=== PATIENT | male | born 1935 | race Caucasian/White ===

== ENCOUNTER 2020-09-12 19:35 | Emergency (ER) | payer OTHER ==
[~2020-09-12 19:35] MED LIST: LIDOCAINE PAIN1 EACH TP
[2020-09-12 20:20] LABS: HEMOGLOBIN 15.4 gm/dl (14.0-17.5); RED BLOOD COUNT 4.69 M/UL (4.20-5.50); WHITE BLOOD COUNT 9.3 K/UL (4.5-11.0)
[2020-09-12 20:45] LABS: BUN/CREATININE RATIO 18 (0-10)
[2020-09-12] MEDS ORDERED: ELIQUIS2.5 MG PO (23:26)
[2020-09-12] MEDS ORDERED: LOPRESSOR 25 MG25 MG PO (23:27)
[2020-09-12] MEDS ORDERED: XANAX 0.25 MG0.25 MG PO (23:28)
[2020-09-12] MEDS ORDERED: CYANOCOBAL1000 MCG/1 INJ (23:30)
[2020-09-12] MEDS ORDERED: HYDROCODON-ACE1 EAC4 PO (23:30)
[2020-09-12] MEDS ORDERED: VOLTAREN ARTHRI20 GM TOP (23:32)
[2020-09-12] MEDS ORDERED: LASIX20 MG PO (23:33)
[2020-09-12] MEDS ORDERED: ZOCOR 40 MG TAB40 MG PO (23:34)
[2020-09-12] MEDS ORDERED: K-DUR TAB 10 M10 MEQ PO (23:35)
[2020-09-12] MEDS ORDERED: ISOSORBIDE MONO30 MG PO (23:37)
[2020-09-12] MEDS ORDERED: NORVASC10 MG PO (23:38)
[2020-09-12] MEDS ORDERED: ECOTRIN81 MG PO (23:38)
[2020-09-13 06:47] LABS: BUN/CREATININE RATIO 14 (0-10)
[2020-09-13 15:11] LABS: RED BLOOD COUNT 4.59 M/UL (4.20-5.50); WHITE BLOOD COUNT 9.4 K/UL (4.5-11.0)
[2020-09-13 16:01] LABS: BUN/CREATININE RATIO 16 (0-10)
[2020-09-14] MEDS ORDERED: LASIX40 MG PO (14:06)
== END 2020-09-14 14:35 | disposition home or self-care (01) ==
LOC: ER1 19:35
PROVIDERS: Internal Medicine; Physician Assistant
DX: I48.91 Unspecified atrial fibrillation (principal); I11.0 Hypertensive heart disease with heart failure; I50.9 Heart failure, unspecified; I49.9 Cardiac arrhythmia, unspecified; E78.5 Hyperlipidemia, unspecified; I25.10 Atherosclerotic heart disease of native coronary artery without angina pectoris; I25.2 Old myocardial infarction; Z90.49 Acquired absence of other specified parts of digestive tract; Z95.1 Presence of aortocoronary bypass graft; Z95.0 Presence of cardiac pacemaker; Z79.82 Long term (current) use of aspirin; Z88.5 Allergy status to narcotic agent; Z87.891 Personal history of nicotine dependence
CPT/HCPCS: 36415; 71045; 80048; 80053; 82550; 82553; 83735; 83874; 83880; 84439; 84443; 84484; 85025; 85610; 85730; 93005; 96374; 96376; 99285; J1940